=== PATIENT | male | born 1995 | race African-American/Black ===

== ENCOUNTER 2020-03-09 10:49 | Emergency (ER) | payer BC, OTHER ==
[~2020-03-09] VITALS: Ht 177.8 cm; Wt 93.0 kg
[2020-03-09] MEDS ORDERED: ETOMIDATE (2MG/ML) 20ML VIAL IV ONE (11:45)
[2020-03-09 12:45] VITALS: BP 146/79
== END 2020-03-09 12:46 | disposition home or self-care (01) ==
LOC: ER 10:49
DX: S43.005A Unspecified dislocation of left shoulder joint, initial encounter (principal); S52.92XA Unspecified fracture of left forearm, initial encounter for closed fracture; S50.812A Abrasion of left forearm, initial encounter; R07.9 Chest pain, unspecified; V43.52XA Car driver injured in collision with other type car in traffic accident, initial encounter; Y93.89 Activity, other specified; Y92.488 Other paved roadways as the place of occurrence of the external cause; Y99.8 Other external cause status
CPT/HCPCS: 23650; 70450; 71045; 72125; 73030; 73060; 73090